=== PATIENT | female | born 1975 | race Caucasian/White ===

== ENCOUNTER 2017-06-12 19:55 | Emergency (ER) | payer OTHER ==
--- NOTE | 2017-06-12 21:05 | ED ---
Head Injury - HPI Summary HPI Summary: 42-year-old female presents with head injury today. States she was skiing and was wearing a helmet when fell backwards onto her head. States her headache is all around her head. She denies any neck pain. She denies any loss consciousness. She denies any vomiting but admits to nausea. She admits to some dizziness. She denies any change in vision. She denies any light sensitivity. She has no medical conditions. She denies any other injury. Denies any difficulty concentrating. States she was seen by the ski molder and observed for an hour and they sent her here. - History Of Current Complaint Chief Complaint: EDHeadInjury Stated Complaint: HEAD INJURY Time Seen by Provider: 06/12/17 20:31 Pain Intensity: 2 - Allergies/Home Medications Allergies/Adverse Reactions: Allergies Allergy/AdvReac Type Severity Reaction Status Date / Time No Known Allergies Allergy Verified 06/12/17 20:13 PMH/Surg Hx/FS Hx/Imm Hx Endocrine/Hematology History: Denies: Hx Anticoagulant Therapy Cardiovascular History: Denies: Hx Myocardial Infarction - Immunization History Immunizations Up to Date: Yes Infectious Disease History: No Infectious Disease History: Denies: Traveled Outside the [place] in Last 30 Days - Family History Known Family History: Positive: Other - headache - Social History Alcohol Use: Daily Alcohol Amount: 1 glass of wine Substance Use Type: Reports: None Smoking Status (MU): Never Smoked Tobacco Review of Systems Negative: Fever Negative: Chest Pain Negative: Shortness Of Breath Positive: Nausea. Negative: Vomiting Positive: Headache All Other Systems Reviewed And Are Negative: Yes Physical Exam Triage Information Reviewed: Yes Vital Signs On Initial Exam: Initial Vitals Temp Pulse Resp BP Pulse Ox 98.4 F 68 14 140/74 99 06/12/17 20:13 06/12/17 20:13 06/12/17 20:13 06/12/17 20:13 06/12/17 20:13 Vital Signs Reviewed: Yes Appearance: Positive: Well-Appearing Skin: Positive: Warm, Dry Head/Face: Positive: Normal Head/Face Inspection, Other - no step off, racoon eyes, battles sign Eyes: Positive: Normal, EOMI, SUKHDEV, Conjunctiva Clear ENT: Positive: Normal ENT inspection, Pharynx normal, TMs normal Neck: Positive: Other: - nontender neck, full ROM of neck Respiratory/Lung Sounds: Positive: Clear to Auscultation, Breath Sounds Present Cardiovascular: Positive: Normal, RRR Abdomen Description: Positive: Nontender, Soft Bowel Sounds: Positive: Present Neurological: Positive: Sensory/Motor Intact, Alert, Oriented to Person Place, Time, CN Intact II-III, Finger to Nose - [place] Coma Scale Best Eye Response: 4 - Spontaneous Best Motor Response: 6 - Obeys Commands Best Verbal Response: 5 - Oriented Coma Scale Total: 15 Diagnostics - Vital Signs Vital Signs Temp Pulse Resp BP Pulse Ox 06/12/17 20:13 98.4 F 68 14 140/74 99 - Laboratory Lab Statement: Any lab studies that have been ordered have been reviewed, and results considered in the medical decision making process. - CT head CT Interpretation: No Acute Changes CT Interpretation Completed By: Radiologist Head Injury Course/Dx Course Of Treatment: 42-year-old female presents with head injury today. States she was skiing and was wearing a helmet when fell backwards onto her head. States her headache is all around her head. She denies any neck pain. She denies any loss consciousness. She denies any vomiting but admits to nausea. She admits to some dizziness. She denies any change in vision. She denies any light sensitivity. She has no medical conditions. She denies any other injury. Denies any difficulty concentrating. States she was seen by the ski molder and observed for an hour and they sent her here. Normal neuro exam. According [place] CT rules no head injury requiring. Patient states though would like CT although not clinicial indicated. CT normal. Will have follow up primary. Patient understands agrees with plan. - Diagnoses Differential Diagnosis/HQI/PQRI: Concussion Without LOC, Contusion, Intracranial Bleed Provider Diagnoses: Head injury Discharge - Discharge Plan Condition: Good Disposition: HOME Patient Education Materials: Head Injury (ED) Referrals: [facility] [place] PHYSICIAN REFERRAL [Outside] Additional Instructions: Place ice on area as needed Take Tylenol or ibuprfeon for headache every 6 hours Modify activities as tolerated Follow up with primary within 5 days Return to ED if develop any new or worsening symptoms
[2017-06-12] MEDS ORDERED: Ibuprofen TAB* 600 MG PO ONE (21:09)
--- NOTE | 2017-06-12 21:14 | RAD ---
HISTORY: Head injury COMPARISONS: None TECHNIQUE: Multiple contiguous axial CT scans were obtained of the head without intravenous contrast. FINDINGS: HEMORRHAGE/INFARCT: There is no hemorrhage or acute infarct. MASSES/SHIFT: There is no mass or shift. EXTRA-AXIAL SPACES: There are no extra-axial fluid collections. SULCI AND VENTRICLES: The sulci and ventricles are normal in size and position for the patient's stated age. CEREBRUM: There are no focal parenchymal abnormalities. BRAINSTEM: There are no focal parenchymal abnormalities. CEREBELLUM: There are no focal parenchymal abnormalities. VESSELS: The vessels are grossly normal. PARANASAL SINUSES: The paranasal sinuses are clear. ORBITS: The orbits are unremarkable. BONES AND SOFT TISSUE: No bone or soft tissue abnormalities are noted. OTHER: None IMPRESSION: NO ACUTE INTRACRANIAL PATHOLOGY.
[2017-06-12 21:49] VITALS: BP 126/73
== END 2017-06-12 21:48 | disposition home or self-care (01) ==
LOC: ED 19:55
DX: S09.90XA Unspecified injury of head, initial encounter (principal); W19.XXXA Unspecified fall, initial encounter; Y93.23 Activity, snow (alpine) (downhill) skiing, snowboarding, sledding, tobogganing and snow tubing; Y92.9 Unspecified place or not applicable
CPT/HCPCS: 70450; 99282; A9270-GY